=== PATIENT | male | born 1965 | race Caucasian/White ===

== ENCOUNTER 2024-02-04 08:51 | Outpatient (CLI) | payer OTHER, SELFPAY | END 2024-02-04 08:52 | disposition home or self-care (01) | LOC: NFLDREF 02-05 09:47 | PROVIDERS: PCP Family Medicine; Referring Provider Family Medicine; Visit Provider Family Medicine | DX: I10 Essential (primary) hypertension (principal); Z12.5 Encounter for screening for malignant neoplasm of prostate; Z13.220 Encounter for screening for lipoid disorders | CPT/HCPCS: 80048; 80061; G0103 ==

== ENCOUNTER 2025-04-21 14:07 | Outpatient (CLI) | payer OTHER, SELFPAY | END 2025-04-21 14:08 | disposition home or self-care (01) | LOC: LKVREF 14:15 | PROVIDERS: PCP Family Medicine; Visit Provider Family Medicine | DX: I10 Essential (primary) hypertension (principal) | CPT/HCPCS: 80048 ==